=== PATIENT | male | born 1960 | race Caucasian/White ===

== ENCOUNTER 2016-07-16 09:14 | Day surgery (SDC) ==
[2016-04-24 16:23] VITALS: BMI 33.5
[2016-07-16] MEDS ORDERED: LIDOCAINE 1% 20 ML MDV ID ONE (10:10)
[2016-07-16] MEDS ORDERED: LIDOCAINE 1% 20 ML MDV ONE (10:10)
[2016-07-16] MEDS ORDERED: SODIUM CHLORIDE 500 ML IV SCH (11:00)
[2016-07-16] MEDS ORDERED: DIPRIVAN 20 ML VIAL IVP ONE (12:00)
[2016-07-16] MEDS ORDERED: SUBLIMAZE ONE (12:00)
[2016-07-16] MEDS ORDERED: VERSED ONE (12:00)
[2016-07-16 13:36] VITALS: BP 142/83; TEMP 98.6
--- NOTE | 2016-07-17 07:09 | OP ---
PROCEDURE: COLONOSCOPY TO THE CECUM WITH SNARE POLYPECTOMY, CLIP PLACEMENT. ENDOSCOPIST: Dany VALLES M.D. INDICATION: SCREENING INSTRUMENT: [id number]. MEDICATION: PER ANESTHESIA. PROCEDURE: The patient was positioned for colonoscopy. The digital rectal exam was negative. The colonoscope was inserted through the anus and advanced under direct vision to the cecum. The cecum was identified using the ileocecal valve and the appendiceal orifice as landmarks. The scope was slowly withdrawn through an adequately prepped colon. Just outside the cecum we found a 1 cm sessile polyp removed using snare cautery. Some oozing was noted from this and we placed a clip. Two small polyps at the hepatic flexure removed using snare cautery. Diverticula noted in the left colon. Retroflex exam otherwise negative. The patient tolerated the procedure without immediate complication. Withdrawal time 19 minutes and 15 seconds. PLAN: 1. Hold Xarelto for five days. 2. Repeat colonoscopy in five years. CC: DR. CHERELLE OLIVERA
== END 2016-07-16 13:36 | disposition home or self-care (01) ==
LOC: SURG 09:14
PROVIDERS: ATTEND Internal Medicine Gastroenterology
DX: Z12.11 Encounter for screening for malignant neoplasm of colon (principal); D12.2 Benign neoplasm of ascending colon; D12.3 Benign neoplasm of transverse colon; K57.30 Diverticulosis of large intestine without perforation or abscess without bleeding

== ENCOUNTER 2016-11-01 18:24 | Emergency (ER) ==
[2016-11-01 18:24] VITALS: BMI 33.5
[2016-11-01 18:36] VITALS: BP 163/96; TEMP 97.4
[2016-11-01] MEDS ORDERED: MORPHINE 4 MG/ML SYRINGE IM STA (18:38)
[2016-11-01] MEDS ORDERED: ZOFRAN 4 MG/2 ML IM STA (18:38)
--- NOTE | 2016-11-01 18:41 | ED.PDOC ---
General ED Provider: Dr. REBECA PEREZ Chief Complaint: Back Pain Stated Complaint: low back pain Time Seen by Physician: 18:35 (acute falre of chronic pain) Mode of Arrival: Walk-In Information Source: Patient Exam Limitations: No limitations Primary Care Provider: PHILIPPE VILLARREAL Nursing and Triage Documentation Reviewed and Agree: Yes Musculoskeletal Complaint Exam - Back Pain Complaint/Exam Mechanism of Injury: Reports: No known trauma Onset/Duration: 1 hr Symptoms Are: Still present Timing: Constant Episodes Lasting: Hours Initial Severity: Severe Current Severity: Severe Location: Reports: Discrete Character: Reports: Throbbing Aggravating: Reports: Movements, Lifting, Bending, Walking Alleviating: Reports: Rest, Position Associated Signs and Symptoms: Denies: Swelling, Redness, Bruising, Fever, Weakness, Numbness, Tingling, Abdominal pain, Flank pain, Bladder incontinence, Bowel incontinence, Weight loss, Pain with weight bearing Related History: Reports: Similar episode Cauda Equina Risk Factors: Reports: None Epidural Abcess Risk Factors: Reports: None Related Surgical History: Reports: None Focal Tenderness: No Paraspinal Muscle Tenderness: Yes Paraspinal Muscle Spasm: Yes Scoliosis: No Lordosis: No Kyphosis: No SLR Test: Right Positive, Left Positive Hip Motion Testing Pain: Right Negative, Left Negative Focal Weakness: Present: None Focal Sensory Loss: Present: None Gait: Present: Abnormal Differential Diagnoses: Strain, Sprain Review of Systems - Review Of Systems Constitutional: Reports: No symptoms Eyes: Reports: No symptoms Ears, Nose, Mouth, Throat: Reports: No symptoms Respiratory: Reports: No symptoms Cardiac: Reports: No symptoms GI: Reports: No symptoms : Reports: No symptoms Musculoskeletal: Reports: Back pain Skin: Reports: No symptoms Neurological: Reports: No symptoms Endocrine: Reports: No symptoms Hematologic/Lymphatic: Reports: No symptoms All Other Systems: Reviewed and Negative Past Medical History - Past Medical History Endocrine: Reports: None Cardiovascular: Reports: Hypertension, A-Fib (WEARS HEART MONITOR(just placed by dr shrestha)), Other (WEARS HEART MONITOR.) Respiratory: Reports: None Hematological: Reports: None Gastrointestinal: Reports: None Genitourinary: Reports: None Neuro/Psych: Reports: Anxiety, Depression Musculoskeletal: Reports: Arthritis Cancer: Reports: None Other Pertinent Past Medical History: KNEE SURGERY. 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 KNEE SURGERY.), Other (DOUBLE HERNIA.), Unknown (EYE. KIDNEY CHILD) - Family History Family History: Reports: Unknown - Social History Smoking Status: Never smoker Hx Substance Use: No Alcohol Screening: Occasionally - Immunizations Tetanus Shot up to Date: Yes Physical Exam - Physical Exam Appearance: Well-appearing, No pain distress, Well-nourished Eyes: DANIELLE, EOMI, Conjunctiva clear ENT: Ears normal, Nose normal, Oropharynx normal Respiratory: Airway patent, Breath sounds clear, Breath sounds equal, Respirations nonlabored Cardiovascular: RRR, Pulses normal, No rub, No murmur GI/: Soft, Nontender, No masses, Bowel sounds normal, No Organomegaly Musculoskeletal: Normal strength, ROM intact, No edema, No calf tenderness Skin: Warm, Dry, Normal color Neurological: Sensation intact, Motor intact, Reflexes intact, Cranial nerves intact, Alert, Oriented Psychiatric: Affect appropriate, Mood appropriate Critical Care Note - Critical Care Note Total Time (mins): 0 Course - Course Orders, Labs, Meds: Orders Category Date Time Status Morphine Sulfate [Morphine 4 mg/ml Syringe] MEDS 11/01/16 18:38 Stat 4 mg IM ONCE STA Ondansetron HCl/Pf [Zofran 4 mg/2 ml] MEDS 11/01/16 18:38 Stat 4 mg IM ONCE STA Medications Generic Name Dose Route Start Last Admin Trade Name Jalenq PRN Reason Stop Dose Admin Morphine Sulfate 4 mg 11/01/16 18:38 Morphine 4 Mg/Ml Syringe IM 11/01/16 18:39 ONCE STA Ondansetron HCl 4 mg 11/01/16 18:38 Zofran 4 Mg/2 Ml IM 11/01/16 18:39 ONCE STA Vital Signs: Temp Pulse Resp BP Pulse Ox 11/01/16 18:24 97.4 F L 67 22 163/96 H 95 Departure - Departure Time of Disposition: 19:00 Disposition: HOME SELF-CARE Discharge Problem: Backache Instructions: Acute Low Back Pain (ED), Chronic Back Pain (ED) Condition: Good Pt referred to PMD for follow-up: No Additional Instructions: Please call your Family Physician as soon as possible to schedule a follow-up appointment. Allergies/Adverse Reactions: Allergies No Known Allergies Allergy (Verified 11/01/16 18:32) Home Medications: Ambulatory Orders Losartan Potassium [Losartan Potassium] 100 mg PO DAILY 10/15/14 Diltiazem HCl [Cartia Xt] 180 mg PO DAILY 03/15/16 Flecainide Acetate 150 mg PO BID 03/15/16 Hydrochlorothiazide 25 mg PO DAILY 03/15/16 Risperidone 0.5 mg PO BEDTIME #30 03/15/16 Benztropine Mesylate 1 mg PO BID #60 06/07/16 Meloxicam 15 mg PO DAILY 07/16/16 Oxycodone HCl/Acetaminophen [Oxycodon-Acetaminophen 7.5-325] 7.5 each PO TID Disposition Discussed With: Patient, Family
== END 2016-11-01 19:00 | disposition home or self-care (01) ==
LOC: ED 18:24
DX: M54.5 Low back pain (principal); G89.29 Other chronic pain
CPT/HCPCS: 96372; 99283

== ENCOUNTER 2017-03-20 07:58 | Outpatient (CLI) | payer OTHER ==
--- NOTE | 2017-03-20 09:25 | US ---
EXAM: Right upper quadrant abdominal ultrasound. History: Right upper quadrant abdominal pain. Technique: Multiple sonographic images through the abdomen were obtained. Color duplex Doppler was used to interrogate vascular flow. Findings: The liver is mildly enlarged. The pancreas is not well visualized due to obscuration by bowel gas. No shadowing gallstones. Gallbladder wall is not thickened. Common bile duct measures 0.5 cm in coty iber. There is antegrade flow within the main portal vein. The liver is echogenic. Limited visualiz ation of the right kidney demonstrates no evidence for hydronephrosis. Impression: Mildly enlarged fatty liver. No cholelithiasis
== END 2017-03-20 07:59 | disposition home or self-care (01) ==
LOC: RAD 07:58
PROVIDERS: ATTEND Family Medicine
DX: R10.11 Right upper quadrant pain (principal)

== ENCOUNTER 2017-03-26 10:23 | Outpatient (CLI) | payer OTHER ==
--- NOTE | 2017-03-26 11:57 | DI ---
EXAM: Thoracic spine radiographs. HISTORY: Back pain. COMPARISON: None available. TECHNIQUE: Frontal, lateral and swimmer's views. FINDINGS: The normal curvature and alignment are maintained. Vertebral body and intervertebral disc heights are normal although mild to moderate multilevel endplate osteophyte formation noted, greates t from T5-6 to T8-9. No fracture or subluxation seen. Adjacent soft tissues are unremarkable. IMPRESSION: Multilevel degenerative disc disease, greater in the mid thoracic spine.
== END 2017-03-26 10:24 | disposition home or self-care (01) ==
LOC: RAD 10:23
PROVIDERS: ATTEND Family Medicine
DX: M54.5 Low back pain (principal)

== ENCOUNTER 2018-01-19 10:37 | Emergency (ER) | payer OTHER ==
[2018-01-19 10:43] VITALS: BP 128/80; TEMP 97.2; BMI 32.8
--- NOTE | 2018-01-19 10:50 | ED.PDOC ---
General ED Provider: Dr. PHILIPPE ENGEL Chief Complaint: Knee Pain/Injury Stated Complaint: Rt Knee Pain. No recent injury. Awakened with pain a few days ago in the morning. Uses a cane for assisted ambulation. Has pain in Lt LE as well Time Seen by Physician: 10:40 Mode of Arrival: Walk-In Information Source: Patient Exam Limitations: No limitations Primary Care Provider: PHILIPPE VILLARREAL Nursing and Triage Documentation Reviewed and Agree: Yes Does patient meet sepsis criteria?: No If yes, has appropriate treatment been initiated?: No System Inflammatory Response Syndrome: Not Applicable Sepsis Protocol: For patient's 13 years and over: Temp is 96.8 and below OR 101 and greater Pulse >90 BPM Resp >20/minute Acutely Altered Mental Status Are patient's symptoms suggestive of a new infection, such as: -Pneumonia -Skin, Soft Tissue -Endocarditis -UTI -Bone, Joint Infection -Implantable Device -Acute Abdominal Infection -Wound Infection -Meningitis -Blood Stream Catheter Infection -Unknown Musculoskeletal Complaint Exam - Knee Pain Complaint/Exam Mechanism of Injury: Reports: No known trauma Onset/Duration: 3 days Symptoms Are: Still present Onset of Pain: Reports: Immediate Initial Severity: Moderate Current Severity: Moderate Location: Reports: Diffuse Character: Reports: Dull, Aching Alleviating: Reports: Rest Aggravating: Reports: Movement, Weight bearing, Prolonged standing, Stairs Associated Signs and Symptoms: Reports: Swelling, Weakness Able to Bear Weight: Yes Septic Arthritis Risk Factors: Reports: None Gout Risk Factors: Reports: >40 years old, Male Related Surgical History: Reports: Right Knee Review of Systems - Review Of Systems Constitutional: Reports: No symptoms Eyes: Reports: No symptoms Ears, Nose, Mouth, Throat: Reports: No symptoms Respiratory: Reports: No symptoms Cardiac: Reports: No symptoms GI: Reports: No symptoms : Reports: No symptoms Musculoskeletal: Reports: No symptoms, Joint pain Skin: Reports: No symptoms Neurological: Reports: No symptoms Endocrine: Reports: No symptoms Hematologic/Lymphatic: Reports: No symptoms All Other Systems: Reviewed and Negative Past Medical History - Past Medical History Endocrine: Reports: None Cardiovascular: Reports: Hypertension, A-Fib (WEARS HEART MONITOR(just placed by dr shrestha)), Other (WEARS HEART MONITOR.) Respiratory: Reports: None Hematological: Reports: None Gastrointestinal: Reports: None Genitourinary: Reports: None Neuro/Psych: Reports: Anxiety, Depression Musculoskeletal: Reports: Arthritis Cancer: Reports: None Other Pertinent Past Medical History: KNEE SURGERY. 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 KNEE SURGERY.), Other (DOUBLE HERNIA.), Unknown (EYE. KIDNEY CHILD) - Family History Family History: Reports: Unknown - Social History Smoking Status: Never smoker Hx Substance Use: No Alcohol Screening: None - Immunizations Tetanus Shot up to Date: Yes Physical Exam - Physical Exam Appearance: Well-appearing, No pain distress, Well-nourished Eyes: DANIELLE, EOMI, Conjunctiva clear ENT: Ears normal, Nose normal, Oropharynx normal Respiratory: Airway patent, Breath sounds clear, Breath sounds equal, Respirations nonlabored Cardiovascular: RRR, Pulses normal, No rub, No murmur GI/: Soft, Nontender, No masses, Bowel sounds normal, No Organomegaly Musculoskeletal: Normal strength, ROM intact, No edema, No calf tenderness, Limited ROM (Rt knee) Skin: Warm, Dry, Normal color Neurological: Sensation intact, Motor intact, Reflexes intact, Cranial nerves intact, Alert, Oriented Psychiatric: Affect appropriate, Mood appropriate Critical Care Note - Critical Care Note Total Time (mins): 0 Course - Course Orders, Labs, Meds: Orders Category Date Time Status Ibuprofen [Motrin] MEDS 01/19/18 11:00 Discontinued 600 mg PO ONCE STA KNEE, RIGHT 4 VIEWS Stat RADS 01/19/18 10:58 Completed Medications Discontinued Medications Generic Name Dose Route Start Last Admin Trade Name Freq PRN Reason Stop Dose Admin Ibuprofen 600 mg 01/19/18 11:00 01/19/18 11:19 Motrin PO 01/19/18 11:01 600 mg ONCE STA Administration Vital Signs: Temp Pulse Resp BP Pulse Ox 01/19/18 10:38 97.2 F L 63 16 128/80 97 Departure - Departure Time of Disposition: 13:50 Disposition: HOME SELF-CARE Discharge Problem: Acute knee pain, Osteoarthritis of left knee Instructions: Knee Pain (ED), Osteoarthritis (ED) Condition: Good Pt referred to PMD for follow-up: Yes IPMP verified?: No Prescriptions: Celecoxib [Celebrex] 200 mg PO DAILY #10 capsule Prednisone 10 mg PO DAILY LAB #18 [email or web address] Allergies/Adverse Reactions: Allergies No Known Allergies Allergy (Verified 01/19/18 10:45) Home Medications: Ambulatory Orders Losartan Potassium 100 mg PO DAILY 10/15/14 Flecainide Acetate 150 mg PO BID 03/15/16 Hydrochlorothiazide 25 mg PO DAILY 03/15/16 Oxycodone HCl/Acetaminophen [Oxycodon-Acetaminophen 7.5-325] 7.5 each PO TID Aspirin [Aspir-Low] 81 mg PO DAILY 01/19/18 Celecoxib [Celebrex] 200 mg PO DAILY #10 capsule 01/19/18 Prednisone 10 mg PO DAILY LAB #18 tab.[email or web address] 01/19/18 Disposition Discussed With: Patient, Family
[2018-01-19] MEDS ORDERED: MOTRIN PO STA (11:00)
--- NOTE | 2018-01-19 13:45 | DI ---
Exam: Four views of the right knee. Comparison: 11/30/2015. Reason for exam: Knee pain. FINDINGS: No acute fracture or malalignment. The joint spaces appear well maintained. Osseous dens ities seen adjacent the distal femur that appears to point away from the joint space. Impression: 1. No acute fracture or dislocation in the right knee. 2. Mild degenerative disease. 3. Osseous density in the distal femur that appears to point away from the joint space may represent an osteochondroma.
== END 2018-01-19 14:13 | disposition home or self-care (01) ==
LOC: ED 10:37
DX: M25.561 Pain in right knee (principal); M17.11 Unilateral primary osteoarthritis, right knee
CPT/HCPCS: 99283

== ENCOUNTER 2018-08-28 12:50 | Outpatient (CLI) | payer OTHER ==
--- NOTE | 2018-08-28 14:47 | DI ---
EXAM: Three views of the lumbar spine. History: Lower back pain. Findings: Bilateral hip arthroplasty hardware. No acute fracture or subluxation of the lumbar spine . Mild to moderate multilevel disc space narrowing with endplate sclerosis and osteophyte formation. Impression: 1. No acute osseous abnormality of the lumbar spine. 2. Mild to moderate degenerative disc disease
--- NOTE | 2018-08-28 14:47 | DI ---
EXAM: CERVICAL SPINE, 3 VIEWS HISTORY: Degenerative disc disease. FINDINGS: Compared to 11/11/2015. There is anterior osteophytic spurring at C3/C4. Some dystrophic calcification in the posterior ligaments is noted. These findings are stable. There is no spondylo listhesis, fracture or loss of vertebral body height. Lateral masses of C1 and C2 are normally alig benjie and the odontoid process is intact. IMPRESSION: 1. Early degenerative disc disease at C3/C4.
--- NOTE | 2018-08-29 08:11 | MRI ---
EXAM: MRI cervical spine without IV contrast. DATE: 08/28/2018. HISTORY: Neck pain. TECHNIQUE: Sagittal and axial T1W and T2W sequences of the cervical spine along with sagittal IR and coronal T2W sequences were obtained using 1.2 Juany magnet. No IV contrast. COMPARISON: C-spine series 08/28/2018. MRI C-spine 12/14/2015. FINDINGS: Mild leftward curvature the mid cervical spine is noted. No acute c-spine fracture, sublu xation, osseous malignancy, or jumped facet is evident. Cervical vertebra are normal in height. Bon e marrow signal is overall normal. Intervertebral discs are normal in height. Cervical and upper th oracic spinal cord reveals no syrinx, cord edema, myelomalacia, or neoplasm. Visible brainstem and cerebellum are unremarkable. No mastoid disease is detected. Trachea, larynx, and epiglottis reveal no abnormality. No thyroid, submandibular, or parotid gland neoplasm is evide nt. No suspicious neck mass, cervical lymphadenopathy, apical lung mass, pneumonia, or pleural effus ion is evident. No suspicious neck mass, cervical lymphadenopathy, apical lung mass, pneumonia, or p leural effusion is demonstrated. Segmental analysis: C2-3: Normal. C3-4: No disc protrusion or central stenosis. Marked right and mild left foraminal stenoses are due to uncinate hypertrophy and mild right facet arthropathy. C4-5: No disc protrusion or central stenosis. Moderate bilateral foraminal stenoses are due to unci sae hypertrophy, mild right facet arthropathy and minor left facet disease. C5-6: Broad posterior disc/osteophyte complex (2.3 mm AP) does not contact the cord. Canal is 10.9 mm AP. Mild/moderate right and mild left foraminal stenoses due to uncinate hypertrophy and mild rig ht facet arthropathy. C6-7: Broad posterior disc/osteophyte complex (1.9 mm AP) does not contact the cord rest; however, t he cord is flattened anteriorly. There is mild ligamentum flavum hypertrophy. Canal is 8.6 mm AP. Moderate left foraminal stenosis is due to uncinate hypertrophy and minor left facet arthropathy. C7-T1: Normal, except for minor right facet arthropathy. T1-2: Normal. IMPRESSIONS: 1. C-spine mild levoscoliosis, mild facet arthropathy, and multilevel DDD. 2. Multilevel high-grade cervical foraminal stenoses as described. 3. Mild central canal stenosis and mild cord flattening at C6-7. No syrinx or myelomalacia.
--- NOTE | 2018-08-29 08:29 | MRI ---
EXAM: MRI lumbar spine without IV contrast. DATE: 08/28/2018. HISTORY: Lumbar degenerative disc disease. Low back pain. TECHNIQUE: Sagittal and axial T1W and T2W sequences of the lumbar spine along with sagittal IR and c oronal T2W sequences were obtained using 1.2 Juany magnet. No IV contrast. COMPARISON: LS spine series 08/28/2018. MRI L-spine 11/28/2015. CT L-spine 15 Oct 2014. FINDINGS: There are five [id number] lumbar vertebra. Minor (3 degrees) leftward curvature of t he lumbar spine is observed. A 2.2 mm retrolisthesis of L5 relative to S1 is observed. No other sub luxation, acute fracture, osseous malignancy, or pars interarticularis defect is demonstrated. Promi nent osteophytes are evident at L1-2, L2-3, L3-4 and L4-5. Lumbar vertebra are normal in height. T2 W/T1W bone marrow signal is somewhat heterogeneous due to areas of fatty infiltration. Mild L4-5 and minor L5-S1 disc space narrowing is detected. No acute sacral fracture or stress reaction is eviden t. There is no acute sacroiliitis. Conus medullaris terminates at L1-2. Visible spinal cord is nor mal. Several small retroperitoneal lymph nodes are displayed. No retroperitoneal lymphadenopathy, paraspi nal mass, or aortic aneurysm is detected. Paraspinal musculature is symmetric bilaterally. Visible portions of the liver, spleen, and adrenal glands are unremarkable. Right kidney mild pelvicaliectas is vs small parapelvic cysts are noted. Cortical thinning in the lateral aspect of the lower pole le ft kidney is seen on coronal sequence, and is similar to November 2015, but this area is not included on the axial images. Visible bowel is unremarkable. Segmental analysis: T11-12: Normal. T12-L1: Normal. L1-2: Minimal right foraminal to far lateral disc bulge causes minor right foraminal narrowing. No central canal stenosis. L2-3: Small concentric disc bulge, mild facet arthropathy, and dorsal epidural fat cause minor right and mild left foraminal stenoses. Left L2 nerve root contacts the disc bulge near the lateral felicia n of the foramen. No central canal stenosis. L3-4: Minor concentric disc bulge, mild left facet arthropathy and dorsal epidural fat cause mild/mo derate narrowing at the opening to the right foramen and mild left foraminal stenosis. Left L3 nerve root contacts the disc bulge near the lateral margin of the foramen. L4-5: Moderate posterior to foraminal disc bulge (with midline and left foraminal annular fissure) a nd minor facet arthropathy cause triangulation of the canal and moderate bilateral foraminal stenoses . Each L4 nerve root contacts the disc bulge just lateral to the foramen. L5-S1: Minor retrolisthesis of L5, pseudodisc bulge, and mild left facet arthropathy cause minor rig ht and moderate left foraminal stenoses. Left L5 nerve root contacts disc bulge near the lateral mar gin of the foramen. No central canal stenosis. IMPRESSIONS: 1. Lumbar spine minor leftward curvature, marked spondylosis, mild facet arthropathy, minor L5-L1 tanner bluxation, and multilevel DDD. 2. Multilevel lumbar foraminal stenoses. Left L2, left L3, both L4, and left L5 nerve roots contact disc bulges near the foramen, and may be sources for pain/radiculopathy. 3. No lumbar spine central canal stenosis. 4. Bone marrow fatty infiltration. 5. 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
== END 2018-08-28 12:51 | disposition home or self-care (01) ==
LOC: RAD 12:50
PROVIDERS: ATTEND Pain Medicine Interventional Pain Medicine
DX: M50.31 Other cervical disc degeneration, high cervical region (principal); M50.321 Other cervical disc degeneration at C4-C5 level; M50.322 Other cervical disc degeneration at C5-C6 level; M50.323 Other cervical disc degeneration at C6-C7 level; M50.33 Other cervical disc degeneration, cervicothoracic region; M47.812 Spondylosis without myelopathy or radiculopathy, cervical region; M47.813 Spondylosis without myelopathy or radiculopathy, cervicothoracic region; M51.26 Other intervertebral disc displacement, lumbar region; M48.061 Spinal stenosis, lumbar region without neurogenic claudication; M51.36 Other intervertebral disc degeneration, lumbar region; M51.37 Other intervertebral disc degeneration, lumbosacral region; M47.816 Spondylosis without myelopathy or radiculopathy, lumbar region; M47.817 Spondylosis without myelopathy or radiculopathy, lumbosacral region